=== PATIENT | female | born 1990 | race Caucasian/White ===

== ENCOUNTER 2017-07-11 02:09 | Emergency (ER) | payer SELFPAY ==
[~2017-07-11] VITALS: Ht 162.6 cm; Wt 41.9 kg
[2017-07-11 02:43] LABS: HEMATOCRIT 40.5 % (36.0-46.0); MCH 30.7 PG (29.0-34.0); MCHC 34.1 G/DL (30.0-36.0); MEAN PLAT.VOLUME 10.5 uM^3 (9.5-12.4); PLATELET COUNT 250 K/uL (156-360); RBC DIS.WIDTH-CV 14.1 % (11.8-14.6); RBC DIS.WIDTH-SD 46.5 % (39-53); WHITE BLOOD COUNT 9.8 K/uL (4.1-10.2)
[2017-07-11 02:57] LABS: CHLORIDE 105 mEq/L (99-109); POTASSIUM 3.7 mEq/L (3.7-5.4); SODIUM 138 mEq/L (136-147)
[2017-07-11 02:59] LABS: GLUCOSE 86 mg/dL (70-99)
[2017-07-11 03:00] LABS: ANION GAP 9 MEQ/L (2-14)
[2017-07-11 03:02] LABS: SERUM ETHYL ALCOHOL < 10 mg/dL
[2017-07-11 03:03] LABS: GFR ESTIMATE (CALCULATED) > 59 mL/min/
[2017-07-11 03:04] LABS: ADD MIUA? NO; BILIRUBIN NEGATIVE; BLOOD NEGATIVE; COLOR STRAW ((YELLOW)); GLUCOSE (STRIP) NEGATIVE; KETONES NEGATIVE; LEUKOCYTES NEGATIVE; NITRITE NEGATIVE; PROTEIN (STRIP) NEGATIVE; SPECIFIC GRAVITY 1.009 (1.000-1.030); UCUL ADDED? NO; UROBILINOGEN 0.2 MG/DL (0.2-1.0)
[2017-07-11 03:05] LABS: UREA NITROGEN (BUN) 16 mg/dL (9-23)
[2017-07-11 03:06] LABS: SALICYLATE < 5.0 MG/DL (15-30)
[2017-07-11 03:12] LABS: QUANTITATIVE HCG < 4.0 MIU/ML
[2017-07-11 03:15] LABS: AMPHETAMINE NEGATIVE (500 ng/mL); BARBITURATES NEGATIVE (200 ng/mL); BENZODIAZEPINES NEGATIVE (150 ng/mL); COCAINE PRESUMPTIVE POSITIVE (150 ng/mL); INTERNAL CONTROLS VALID? YES; METHADONE NEGATIVE (200 ng/mL); METHAMPHETAMINE NEGATIVE (500 ng/mL); OPIATES (MORPHINE) PRESUMPTIVE POSITIVE (100 ng/mL); OXYCODONE PRESUMPTIVE POSITIVE (100 ng/mL); PHENCYCLIDINE NEGATIVE (25 ng/mL); PROPOXYPHENE NEGATIVE (300 ng/mL); THC CANNABINOIDS NEGATIVE (50 ng/mL); TRICYCLIC ANTIDEPRESSANTS NEGATIVE (300 ng/mL)
[2017-07-11 03:16] LABS: ADD MEDTOX COMMENT Y
[2017-07-11 03:52] VITALS: BP 131/95
== END 2017-07-11 04:04 | disposition home or self-care (01) ==
LOC: EME 02:09
PROVIDERS: Emergency Medicine
DX: T42.6X2A Poisoning by other antiepileptic and sedative-hypnotic drugs, intentional self-harm, initial encounter (principal); T39.1X2A Poisoning by 4-Aminophenol derivatives, intentional self-harm, initial encounter; F19.10 Other psychoactive substance abuse, uncomplicated; F32.9 Major depressive disorder, single episode, unspecified; K21.9 Gastro-esophageal reflux disease without esophagitis; F17.200 Nicotine dependence, unspecified, uncomplicated
CPT/HCPCS: 80048; 81003; 84702; 84999; 85027; 90837; 99281; 99285; G0480

== ENCOUNTER 2018-03-14 17:58 | Emergency (ER) | payer OTHER ==
[~2018-03-14] VITALS: Ht 162.6 cm; Wt 48.0 kg
[2018-03-14 18:41] LABS: APPEARANCE TURBID ((CLEAR)); BILIRUBIN NEGATIVE; BLOOD LARGE; COLOR YELLOW ((YELLOW)); GLUCOSE (STRIP) NEGATIVE; KETONES 20; LEUKOCYTES LARGE; NITRITE POSITIVE; PROTEIN (STRIP) >=500; SPECIFIC GRAVITY 1.019 (1.000-1.030); UROBILINOGEN 0.2 MG/DL (0.2-1.0)
[2018-03-14] MEDS ORDERED: LEVOTHYROXINE125 MCG PO (18:46)
[2018-03-14 19:07] LABS: WHITE BLOOD CELLS TNTC /HPF (0-5)
[2018-03-14] MEDS ORDERED: PYRIDIUM100 MG PO (19:09)
[2018-03-14] MEDS ORDERED: BACTRIM,SEPT1 TABLET PO (19:09)
[2018-03-14 19:29] VITALS: BP 101/65
== END 2018-03-14 19:44 | disposition home or self-care (01) ==
LOC: EME 17:58
PROVIDERS: Nurse Practitioner Family
DX: N39.0 Urinary tract infection, site not specified (principal); E03.9 Hypothyroidism, unspecified; K21.9 Gastro-esophageal reflux disease without esophagitis; F32.9 Major depressive disorder, single episode, unspecified; F17.200 Nicotine dependence, unspecified, uncomplicated
CPT/HCPCS: 81003; 99281; 99284